=== PATIENT | male | born 1990 | race Caucasian/White ===

== ENCOUNTER 2022-04-30 18:18 | Outpatient (CLI) | payer OTHER, SELFPAY ==
[2022-04-30 22:11] LABS: Chloride* 100 mmol/L (96-114); Potassium* 4.3 mmol/L (3.6-5.1); Sodium* 138 mmol/L (135-149)
[2022-04-30 22:13] LABS: Bilirubin Total* 0.7 mg/dL (0.1-1.5); Carbon Dioxide* 27 mmol/L (20-32); Cholesterol* 200 mg/dL (90-199); Creatinine* 0.9 mg/dL (0.5-1.5); Estimated Glomerular Filt Rate 119 ml/min
[2022-04-30 22:14] LABS: Alanine Aminotransferase* 42 U/L (4-50); Alkaline Phosphatase* 65 U/L (40-150); Aspartate Amino Transferase* 36 U/L (12-35); Blood Urea Nitrogen* 13 mg/dL (5-24); Glucose* 90 mg/dL (60-115); Total Protein* 8.1 g/dL (6.0-8.3); Triglycerides* 145 mg/dL (40-149)
[2022-04-30 22:15] LABS: Calcium* 9.8 mg/dL (8.4-10.6); HDL Cholesterol* 48 mg/dL (>=40); LDL Cholesterol Calculated 123 mg/dL (<100)
== END 2022-04-30 18:19 | disposition home or self-care (01) ==
PROVIDERS: PCP Family Medicine; Visit Provider Family Medicine
DX: Z00.00 Encounter for general adult medical examination without abnormal findings (principal); J45.990 Exercise induced bronchospasm; E66.01 Morbid (severe) obesity due to excess calories; K21.9 Gastro-esophageal reflux disease without esophagitis; Z13.1 Encounter for screening for diabetes mellitus; Z13.6 Encounter for screening for cardiovascular disorders
CPT/HCPCS: 80053; 80061

== ENCOUNTER 2023-02-22 09:59 | Emergency (ER) | payer OTHER, SELFPAY ==
[2023-02-22 10:05] VITALS: BP 116/80; PULSE 95; RESP 18; TEMP 36.2; O2SAT 99; BMI 28.1
--- NOTE | 2023-02-22 11:18 | ED.ARRPALP ---
HPI - Arrhythmia/Palpitations General Chief Complaint: Arrhythmia/Palpitations Stated Complaint: Palpitations Time Seen by Provider: 02/22/23 10:58 History of Present Illness HPI narrative: This 32-year-old male was at a clinic appointment this morning and was sent here for further evaluation. The patient states that he has been feeling some palpitations and has some episodes of what he describes as chest tightness. Sometimes this is related to exertion. He states that he does feel more fatigue over these past couple weeks. He did have a viral type infection prior to this. He does not report any nausea, vomiting, or diaphoresis. He states that he does feel short of breath at times and has some lightheadedness. He is otherwise in good health. He had an EKG done in the clinic which showed normal sinus rhythm and no specific ST or T-wave changes. Related Data Home Medications Medication Instructions Recorded Confirmed cetirizine 10 mg capsule (Zyrtec) 10 mg PO QDAY 01/30/22 04/30/22 montelukast 10 mg tablet 10 mg PO QPM PRN 01/30/22 04/30/22 multivitamin 1 tab PO QAM 01/30/22 04/30/22 Previous Rx's Medication Instructions Recorded albuterol sulfate 90 mcg/actuation 2 puff inhalation Q4H PRN 04/30/22 aerosol inhaler bronchospasm #8.5 grams omeprazole 40 mg capsule,delayed 40 mg PO QDAY #90 caps 04/30/22 release Allergies Allergy/AdvReac Type Severity Reaction Status Date / Time penicillin V Allergy Mild Rash Verified 04/27/22 12:33 Review of Systems Status of ROS: Reports: 10 or more systems reviewed and unremarkable except as noted in History and below Narrative: Constitutional: No fevers, no weight gain or loss. Eyes: No discharge. No vision changes. HENT: No congestion, no sore throat, no ear pain. Cardiovascular: He reports chest tightness and has had some palpitations at times. Respiratory: No shortness of breath, no wheezes, no cough. Gastrointestinal: No abdominal pain, no vomiting, no diarrhea. Genitourinary: No dysuria, no hematuria. Musculoskeletal: Normal range of motion. Skin: No rashes, no pruritis. Neurological: No dizziness, weakness, sensory change, speech change. Endo/Heme/Allergies: No bruising or bleeding. No polydipsia. Pysch: no suicidality, no anxiety, no insomnia. All other systems reviewed and are negative. PFSH PFSH Surgical History (Updated 04/27/22 @ 12:34 by Marely Owen ~ PSR) History of third molar tooth extraction ?K08.409 - Partial loss of teeth, unspecified cause, unspecified class (ICD-10) History of surgery on extremity ?Z98.890 - Other specified postprocedural states (ICD-10) History of nasal surgery (01/15/08) ?Z98.890 - Other specified postprocedural states (ICD-10) Family History (Updated 04/27/22 @ 12:38 by Marely Owen ~ PSR) Mother Melanoma Maternal Grandfather Diabetes Social History (Updated 04/27/22 @ 12:38 by Marely Owen ~ PSR) Narrative: Non smoker Smoking Status: Never smoker Non-prescribed substance use: denies use Exam Narrative: Exam Narrative: Constitutional: Well-developed, well-nourished, no acute distress. HEENT: Normocephalic, atraumatic. Neck: Normal range of motion. Nontender. Supple. Heart: Regular. No murmurs. Normal rate. Intact distal pulses. Lungs: Clear to auscultation. No chest discomfort. No wheezes, rhonchi, or rales. Abdomen: Normal bowel sounds. Nontender. No rebound tenderness. Genitalia: Deferred. Back: No midline tenderness. Normal range of motion. Extremities: Normal range of motion. No injury. Skin: Intact. No rash. Warm. No erythema or pallor. Neurologic: No altered sensation. No weakness. Alert and oriented. Psychiatric: No suicidality. No anxiety or depression. No insomnia. Nursing notes and vitals signs are reviewed. Const: Vital Signs, click to edit/add: Vital Signs - 24 hr 02/22/23 10:05 Temperature 97.1 F L Pulse Rate [Right Pulse Oximeter] 95 Respiratory Rate 18 Blood Pressure [Ri ght Upper Arm] 116/80 Pulse Oximetry 99 Oxygen Delivery Me thod Room Air Course Vital Signs Vital signs: Initial Vital Signs Temperature 97.1 F L 02/22/23 10:05 Temperature Source Temporal Artery Scan 02/22/23 10:05 Pulse Rate 95 02/22/23 10:05 Pulse Rhythm Regular 02/22/23 10:05 Respiratory Rate 18 02/22/23 10:05 Blood Pressure 116/80 02/22/23 10:05 Blood Pressure Mean 92 02/22/23 10:05 Blood Pressure Position Sitting 02/22/23 10:05 Pulse Oximetry 99 02/22/23 10:05 Oxygen Delivery Method Room Air 02/22/23 10:05 Vital Signs Temperature 97.1 F L 02/22/23 10:05 Pulse Rate 95 02/22/23 10:05 Respiratory Rate 18 02/22/23 10:05 Blood Pressure 116/80 02/22/23 10:05 Pulse Oximetry 99 02/22/23 10:05 Oxygen Delivery Method Room Air 02/22/23 10:05 Temperature 97.1 F L 02/22/23 10:05 Pulse Rate 95 02/22/23 10:05 Respiratory Rate 18 02/22/23 10:05 Blood Pressure 116/80 02/22/23 10:05 Pulse Oximetry 99 02/22/23 10:05 Oxygen Delivery Method Room Air 02/22/23 10:05 MDM - Arrhythmia/Palpitations MDM Narrative Medical decision making narrative: This patient came here from clinic for further evaluation regarding some palpitations and feeling chest tightness or fatigue but no chest pain. He states that he did have a virus or some kind of infection a few weeks ago and initially thought that he was recovering from this but now that it has persisted over these couple weeks he comes in to have it checked out. I did look at the EKG that was done in clinic and we had 1 here also that returns with reassuring findings. Additionally lab results today are normal including troponin at 0. The patient is maintaining normal vital signs and is asymptomatic. I did discuss various causes of his symptoms but indicated reassurance with these findings. At the time of discharge the patient appears safe for outpatient management. The treatment plan is reviewed along with written and verbal return precautions. Reasons to return and the importance of close followup were also reviewed. Lab Data Labs: Lab Results 02/22/23 02/22/23 02/22/23 Range/Units 11:18 11:25 11:28 WBC 8.18 (4.50-11.00) K/uL RBC 4.88 (4.30-5.90) m/uL Hgb 13.9 (13.5-17.5) gm/dL Hct 41.1 (37.0-53.0) % MCV 84 (80-100) fL MCH 29 (26-34) pg MCHC 34 (32-36) gm/dL RDW Coeff of Melinda 12.3 (11.5-15.5) % Plt Count 151 (140-440) K/uL Neut % (Auto) 27.4 L (42.0-72.0) % Lymph % (Auto) 63.2 H (20-44) % Bertie % (Auto) 5.4 (0.0-11.0) % Eos % (Auto) 2.7 (0.0-7.0) % Baso % (Auto) 0.7 (0.0-3.0) % Neut # (Auto) 2.20 (1.7-7.0) K/uL Lymph # (Auto) 5.20 H (0.90-2.90) K/uL Bertie # (Auto) 0.40 (0.00-0.90) K/UL Eos # (Auto) 0.22 (0.00-0.50) K/uL Baso # (Auto) 0.06 (0.00-0.30) K/uL Abs Immat Gran (auto) 0.05 (0.00-0.30) K/uL Imm/Tot Granulo (auto) 0.6 % Diff Slide Review Acceptable Review (Acceptable) Sodium 137 (135-149) mmol/L Potassium 4.1 (3.6-5.1) mmol/L Chloride 100 (96-114) mmol/L Carbon Dioxide 30 (20-32) mmol/L BUN 12 (5-24) mg/dL Creatinine 0.9 (0.5-1.5) mg/dL Estimated Creat Clear 143.44 Estimated GFR 118 ml/min Glucose 90 (60-115) mg/dL Calcium 8.7 (8.4-10.6) mg/dL C-Reactive Protein 3.2 H (0.5-1.0) mg/dL SARS-CoV-2 (PCR) Negative SARS-CoV-2 (Negative) Influenza Type A (PCR) Negative PCR FLU A (Negative) Influenza Type B (PCR) Negative PCR FLU B (Negative) RSV (PCR) Negative PCR RSV (Negative) POC Troponin I 0.00 L (0.01-0.04) ng/ml ECG Data Attestation: I personally reviewed and interpreted this ECG as follows: Interpretation: Normal sinus rhythm. Rate is 85 beats per minute. There are no specific ST or T-wave abnormalities. Discharge Plan Discharge Clinical Impression: Palpitations Patient Disposition: Home, Self-Care Condition: Stable Additional Instructions: Increase activity as tolerated. Follow up with MD or return if symptoms are recurrent or worsening. Prescriptions: No Action omeprazole 40 mg capsule,delayed release(DR/EC) 40 mg PO QDAY Qty: 90 3RF albuterol sulfate 90 mcg/actuation HFA aerosol inhaler 2 puff inhalation Q4H PRN (Reason: bronchospasm) Qty: 8.5 11RF montelukast 10 mg tablet 10 mg PO QPM PRN multivitamin Tablet 1 tab PO QAM Zyrtec 10 mg capsule 10 mg PO QDAY Follow Up/Referrals: Maryjane Rico DO [Primary Care Provider] - Stand Alone Forms: [employer] Info Instructions
[2023-02-22 11:34] LABS: Basophils Absolute Auto 0.06 K/uL (0.00-0.30); Basophils Percent Auto 0.7 % (0.0-3.0); Eosinophils Absolute Auto 0.22 K/uL (0.00-0.50); Eosinophils Percent Auto 2.7 % (0.0-7.0); Hematocrit 41.1 % (37.0-53.0); Hemoglobin* 13.9 gm/dL (13.5-17.5); Immature Granulocytes Abs Auto 0.05 K/uL (0.00-0.30); Immature Granulocytes Pct Auto 0.6 %; Lymphocytes Percent Auto 63.2 % (20-44); Mean Corpuscular HGB Conc 34 gm/dL (32-36); Mean Corpuscular Hemoglobin 29 pg (26-34); Mean Corpuscular Volume 84 fL (80-100); Monocytes Percent Auto 5.4 % (0.0-11.0); Neutrophils Percent Auto 27.4 % (42.0-72.0); Platelet Count* 151 K/uL (140-440); RDW Coefficient of Variation % 12.3 % (11.5-15.5); Red Blood Count 4.88 m/uL (4.30-5.90); White Blood Count* 8.18 K/uL (4.50-11.00)
[2023-02-22 11:48] LABS: Chloride* 100 mmol/L (96-114); Potassium* 4.1 mmol/L (3.6-5.1); Sodium* 137 mmol/L (135-149)
[2023-02-22 11:51] LABS: Creatinine* 0.9 mg/dL (0.5-1.5); Est. Creatinine Clearance* 143.44; Estimated Glomerular Filt Rate 118 ml/min
[2023-02-22 11:52] LABS: Blood Urea Nitrogen* 12 mg/dL (5-24); Calcium* 8.7 mg/dL (8.4-10.6); Carbon Dioxide* 30 mmol/L (20-32); Glucose* 90 mg/dL (60-115)
[2023-02-22 11:55] LABS: C Reactive Protein* 3.2 mg/dL (0.5-1.0)
[2023-02-22 11:56] LABS: Slide Review Reflex Yes
[2023-02-22 11:57] LABS: Slide Review Acceptable Review (Acceptable)
[2023-02-22 12:10] LABS: PCR FLU A Negative PCR FLU A (Negative); PCR FLU B Negative PCR FLU B (Negative); PCR RSV Negative PCR RSV (Negative)
[2023-02-22 12:17] LABS: SARS PCR* Negative SARS-CoV-2 (Negative)
[2023-02-22 13:10] VITALS: BP 120/78; PULSE 67; RESP 16; TEMP 36.6; O2SAT 98
== END 2023-02-22 13:18 | disposition home or self-care (01) ==
PROVIDERS: Emergency Provider Emergency Medicine Emergency Medical Services; PCP Family Medicine
DX: R00.2 Palpitations (principal)
CPT/HCPCS: 36415; 80048; 84484; 85025; 86140; 87631; 93005; 99284